=== PATIENT | male | born 1985 | race Caucasian/White ===

== ENCOUNTER 2022-10-28 13:50 | Outpatient (CLI) | payer OTHER, SELFPAY | END 2022-10-28 13:51 | disposition home or self-care (01) | PROVIDERS: PCP Emergency Medicine; Visit Provider Emergency Medicine | DX: R19.7 Diarrhea, unspecified (principal) | CPT/HCPCS: 83516; 84443 ==

== ENCOUNTER 2022-11-20 11:59 | Outpatient (CLI) | payer OTHER, SELFPAY | END 2022-11-20 12:00 | disposition home or self-care (01) | LOC: OP CLINIC 12:00 | PROVIDERS: PCP Emergency Medicine; Visit Provider Internal Medicine | DX: K52.9 Noninfective gastroenteritis and colitis, unspecified (principal) | CPT/HCPCS: 45380; 88305; J2250; J3010 ==

== ENCOUNTER 2025-03-19 06:09 | Day surgery (SDC) | payer OTHER, SELFPAY ==
[2025-03-19] VITALS (11 sets, daily range): BP systolic 119–133; BP diastolic 76–102; PULSE 47–63; RESP 14–16; TEMP 36.1–36.3; O2SAT 94–98; BMI 29.7
[2025-03-19] MEDS: LACTATED RINGERS 500 ML 500 ML 100 ML IV ×2 (06:56→09:35)
[2025-03-19] MEDS: SODIUM CHLORIDE 0.9 % (FLUSH) 10 ML SYRINGE IVF (06:57)
--- NOTE | 2025-03-19 07:19 | W.PM.H&PU ---
History & Physical Update History & Physical Update H&P Reviewed and patient assessed: No changes noted H&P Updates: Patient has had no change in symptoms since I saw him in clinic.
[2025-03-19] MEDS: CEFAZOLIN 1 GM inj IVP (07:25)
--- NOTE | 2025-03-19 07:27 | P.ANES_ITS ---
Anesthesia Charges Start Date/Time Anesthesia Start Date: 03/19/25 Anesthesia Start Time: 07:20 Stop Date/Time Anesthesia Stop Date: 03/19/25 Anesthesia Stop Time: 07:53 Coding CPT Codes CPT Codes: ANESTH ANORECTAL SURGERY - 92827 ([id number]) P1 - NORMAL HEALTHY PATIENT, QK - OIL PAINTER 2-4 CNCRNT ANES PROC, QX - GEOSCIENCES FACULTY MEMBER SVNash W/ MED DIRECTION
--- NOTE | 2025-03-19 07:27 | W.ANESCHARGE ---
Anesthesia Charges Start Date/Time Anesthesia Start Date: 03/19/25 Anesthesia Start Time: 07:20 Stop Date/Time Anesthesia Stop Date: 03/19/25 Anesthesia Stop Time: 07:53 Coding CPT Codes CPT Codes: ANESTH ANORECTAL SURGERY - 34887 ([id number]) P1 - NORMAL HEALTHY PATIENT, QK - PRECISION LAYOUT WORKER 2-4 CNCRNT ANES PROC, QX - EXTERN SVNash W/ MED DIRECTION
[2025-03-19] MEDS: BUPIVACAINE 0.5% 30 ML INJECTION (07:37)
[2025-03-19] MEDS: BUPIVACAINE LIPOSOME 133 MG/10 ML INJ INFILTRATI (07:37)
--- NOTE | 2025-03-19 07:53 | P.ANES_ITS ---
Anesthesia Charges Start Date/Time Anesthesia Start Date: 03/19/25 Anesthesia Start Time: 07:20 Stop Date/Time Anesthesia Stop Date: 03/19/25 Anesthesia Stop Time: 07:53 Coding CPT Codes CPT Codes: ANESTH ANORECTAL SURGERY - 06593 ([id number]) P1 - NORMAL HEALTHY PATIENT, QK - CRUSHER ASSEMBLER 2-4 CNCRNT ANES PROC, QX - EXTENSION ASSOCIATE SVNash W/ MED DIRECTION
--- NOTE | 2025-03-19 07:53 | W.ANESCHARGE ---
Anesthesia Charges Start Date/Time Anesthesia Start Date: 03/19/25 Anesthesia Start Time: 07:20 Stop Date/Time Anesthesia Stop Date: 03/19/25 Anesthesia Stop Time: 07:53 Coding CPT Codes CPT Codes: ANESTH ANORECTAL SURGERY - 78446 ([id number]) P1 - NORMAL HEALTHY PATIENT, QK - LOGISTICS ENGINEER 2-4 CNCRNT ANES PROC, QX - ELEVATOR CONSTRUCTOR HYDRAULIC SVNash W/ MED DIRECTION
--- NOTE | 2025-03-19 07:57 | PM.GSPRC ---
Operative Note Date of procedure: 03/19/25 Pre-op diagnosis: External hemorrhoid Post-op diagnosis: Same Type of Procedure: External hemorrhoidectomy Indications: The patient is a 39-year-old male who has a longstanding history of perianal concerns. He has had a lump in the area which has increased in size over the past several years. This has made it very difficult for him to keep his perianal area clean. Exam revealed a pedunculated external hemorrhoid. After discussion of options he elected to proceed with excision. Procedure Description: After discussing the risks and benefits of the procedure, the patient signed informed consent.? The operative site was marked and the patient was brought to the operating room and placed on the operating table in prone miguelito-knife position.? Care was taken to pad the patient's pressure points.?? The patient was then given sedation by anesthesia.?? The operative site was then prepped and draped in the usual sterile fashion.? A time-out was then performed. The area was examined. The external hemorrhoid was in the posterior midline. This was fairly pedunculated and did not appear to pass over the anal verge and was not contiguous with internal hemorrhoidal tissue. No masses were palpable on digital rectal exam. A Pineda bivalve was used to perform an internal exam and no abnormal tissue was noted. I then injected local anesthetic in the form of Exparel mixed with 0.5% Marcaine at the base of the pedunculated hemorrhoid. A pudendal nerve block was also performed. Using cautery, I excised the hemorrhoidal tissue in an elliptical fashion at the base. Hemostasis was achieved with cautery. 3-0 chromic sutures were used to close the skin and assist with hemostasis. The specimen was sent to pathology. Gauze was then applied. ? The patient was then woken and transported to the recovery area in stable condition. ? The patient tolerated the procedure well. Findings: Pedunculated external hemorrhoid Surgeon: Jennifer Jimenez MD Estimated blood loss (mL): 1 Specimen: Other Additional Specimen Information: External hemorrhoid Condition: stable Disposition: same day
[2025-03-19] MEDS: ONDANSETRON 2 MG/ML inj 4 MG IVP (09:30)
--- NOTE | 2025-03-19 09:42 | SUR.PHASEII ---
0930: Extrusion Technician reviewing discharge paperwork with patient and spouse. Pt listening with eyes closed. States he's feeling nauseous. Provided emesis bag. Administered Zofran IV-see eMAR. Patient offered cool washcloth for forehead and Qeasy aromatherapy patch - pt accepted. 2nd 500 cc bag LR initiated - see eMAR. Denies pain. Op site checked. Denies any other needs at this time. Resting with lights off, call light within reach, spouse at the bedside.
== END 2025-03-19 10:43 | disposition home or self-care (01) ==
PROVIDERS: PCP Emergency Medicine; Visit Provider Surgery
PROC: (CPT 46999; principal; 2025-03-19 07:30)
DX: K64.4 Residual hemorrhoidal skin tags (principal)
CPT/HCPCS: 46999; 00902; J0665; J0666; J0690; J2250; J2405; J2704; J3010; J3490; J7120